=== PATIENT | male | born 1955 | race Asian ===

== ENCOUNTER 2019-03-12 09:07 | Emergency (ER) | payer OTHER ==
[~2019-03-12] VITALS: Ht 167.6 cm; Wt 76.7 kg
[2019-03-12 09:18] VITALS: Ht 167.6 cm; Wt 76.7 kg
[2019-03-12 11:29] VITALS: BP 130/81
== END 2019-03-12 11:29 | disposition home or self-care (01) ==
LOC: ED 09:07
DX: S41.111A Laceration without foreign body of right upper arm, initial encounter (principal); W18.30XA Fall on same level, unspecified, initial encounter; Y93.89 Activity, other specified; Y92.89 Other specified places as the place of occurrence of the external cause; Y99.8 Other external cause status
CPT/HCPCS: 90715; J2001; Q0092